=== PATIENT | male | born 1975 | race American Indian/Alaskan Native ===

== ENCOUNTER 2017-10-03 13:00 | Inpatient (IN) | payer OTHER ==
[2017-10-03 14:20] LABS: Basophils # (Auto) 0.1 K/mm3 (0.0-0.1); Basophils % (Auto) 0.6 % (0.0-1.8); Eosinophils # (Auto) 0.2 K/mm3 (0.0-0.4); Eosinophils % (Auto) 1.6 % (0.0-4.3); Hematocrit 47.6 % (35.5-45.6); Hemoglobin 15.6 gm/dl (11.8-15.2); Lymphocytes # (Auto) 2.4 K/mm3 (1.2-5.4); Lymphocytes % (Auto) 22.4 % (13.4-35.0); Mean Corpuscular HGB Conc 33 % (32-34); Mean Corpuscular Hemoglobin 30 pg (28-32); Mean Corpuscular Volume 92 fl (84-94); Monocytes # (Auto) 1.1 K/mm3 (0.0-0.8); Monocytes % (Auto) 10.4 % (0.0-7.3); Platelet Count 131 K/mm3 (140-440); Red Blood Count 5.19 M/mm3 (3.65-5.03); Red Cell Distribution Width 13.9 % (13.2-15.2)
[2017-10-03 14:29] LABS: INR 0.97 (0.87-1.13)
[2017-10-03 14:30] LABS: Partial Thromboplastin Time 29.9 Sec. (24.2-36.6)
[2017-10-03 15:31] LABS: BUN/Creatinine Ratio 13; Blood Urea Nitrogen 12 mg/dL (9-20); Calcium 9.5 mg/dL (8.4-10.2); Hemolysis Index 14
[2017-10-03 15:56] LABS: Bilirubin,Direct 0.3 mg/dL (0-0.2)
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
[2017-10-03] MEDS ORDERED: CARDIZEM IV ONE (17:57)
--- NOTE | 2017-10-03 18:01 | XRay Report ---
FINAL REPORT EXAM: XR CHEST ROUTINE 2V HISTORY: CHERRIE TECHNIQUE: Chest two views PA and lateral PRIORS: None. FINDINGS: There is mild cardiac enlargement. No focal pulmonary infiltrate identified. No pleural fluid collection seen. The pulmonary vasculature is unremarkable. IMPRESSION: Mild cardiomegaly No acute pulmonary findings
[2017-10-03] MEDS ORDERED: LOPRESSOR PO ONE (18:05)
[2017-10-03] MEDS: ASPIRIN PO SCH (18:52)
[2017-10-03] MEDS ORDERED: PROVENTIL IH PRN (20:15)
[2017-10-03] MEDS ORDERED: ZOFRAN IV PRN (20:15)
[2017-10-03] MEDS ORDERED: TYLENOL PO PRN (20:15)
[2017-10-03] MEDS ORDERED: MILK OF MAGNESIA PO PRN (20:15)
[2017-10-03] MEDS ORDERED: DULCOLAX PR PRN (20:15)
--- NOTE | 2017-10-03 21:40 | Cat Scan Report ---
FINAL REPORT PROCEDURE: CT ANGIO CHEST TECHNIQUE: Computerized tomographic angiography of the chest was performed during the IV injection of iodinated nonionic contrast including image processing. The image data was postprocessed using 2-dimensional multiplanar reformatted (MPR) and 3-dimensional (MIP and/or volume rendered) techniques. HISTORY: dypsnea. COMPARISON: No prior studies are available for comparison. FINDINGS: Pulmonary outflow tract, right and left main pulmonary arteries and their proximal branches: Clear, no filling defects seen to suggest pulmonary embolus. Pericardium: No evidence of pericardial effusion.. The heart appears to be mildly enlarged. Thoracic aorta: Atherosclerotic changes are seen. No aneurysm is identified. Coronary arteries: Are unremarkable. Mediastinum and hilar regions: Nonspecific subcentimeter lymph nodes are visualized. No pathologically enlarged lymph nodes or masses are identified. Lung Elder: There is minimal linear atelectasis in the lung bases. The lungs otherwise are clear. Upper abdomen: No acute or focal abnormality is seen. Other: No acute bony abnormalities are identified. IMPRESSION: No evidence of pulmonary embolus. Mild cardiomegaly. No acute abnormality is identified.
[2017-10-03] MEDS: COREG PO SCH (22:59)
[2017-10-03] MEDS: TAPAZOLE PO SCH (23:00)
[2017-10-04] MEDS: CARDIZEM PO SCH ×4 (00:20→17:30)
[2017-10-04] MEDS: TAPAZOLE PO SCH ×3 (05:03→21:46)
[2017-10-04] MEDS: LASIX IV SCH ×2 (05:04→17:40)
--- NOTE | 2017-10-04 05:13 | History and Physical Report ---
History of Present Illness Date of admission: 10/03/17 20:15 Chief complaint: I cant breathe, and i feel like im holding on to fluid History of present illness: 42 YO Male with Systolic CHF, Medication Noncompliance, Hyperthyroidism, Atrial Fib presents to ED for evaluation. Pt states that he has experienced shortness of breath and chest discomfort over the past 2 days with worsening symptoms over the past 1 day. Pt acknowledges orthopnea/PND, dyspnea on exertion, bilateral leg swelling as well as palpitations. Pt states that he has not taken his medication for the past 2 months. Pt denies fever, chills, CP, NVD, Syncope , Skin rash, recent ill contacts, productive cough. Pt seen and evaluated in ED and found to have Acuge CHF decompensation, as well as Atril Fib, and thyrotoxicosis. Pt treated IAW CHF protocol, and restarted on beta louis, and methmizole. Pt admitted to telemetry. Past History Past Medical History: atrial fib, heart failure, hyperthyroidism Past Surgical History: Other (Arm surgery) Social history: , lives with family Family history: hypertension Medications and Allergies Allergies Allergy/AdvReac Type Severity Reaction Status Date / Time Penicillins Allergy Hives Verified 10/03/17 13:27 Home Medications Medication Instructions Recorded Confirmed Last Taken Type Carvedilol [Coreg] 25 mg PO BID 10/03/17 10/03/17 Unknown History Furosemide [Lasix] 20 mg PO DAILY 10/03/17 10/03/17 Unknown History Active Meds: Active Medications Acetaminophen (Tylenol) 650 mg PO Q4H PRN PRN Reason: Pain MILD(1-3)/Fever >100.5/RAMIREZ Albuterol (Proventil) 2.5 mg IH Q4HRT PRN PRN Reason: Shortness Of Breath Aspirin (Aspirin) 325 mg PO QDAY [facility] Last Admin: 10/03/17 18:52 Dose: 325 mg Bisacodyl (Dulcolax) 10 mg RI QDAY PRN PRN Reason: Constipation unrelieved by MOM Carvedilol (Coreg) 25 mg PO BID [facility] Last Admin: 10/03/17 22:59 Dose: 25 mg Diltiazem HCl (Cardizem) 30 mg PO Q6HR [facility] Last Admin: 10/04/17 05:03 Dose: 30 mg Furosemide (Lasix) 20 mg IV BID@0600,1800 [facility] Last Admin: 10/04/17 05:04 Dose: 20 mg Magnesium Hydroxide (Milk Of Magnesia) 30 ml PO Q4H PRN PRN Reason: Constipation Methimazole (Tapazole) 5 mg PO Q8HR [facility] Last Admin: 10/04/17 05:03 Dose: 5 mg Ondansetron HCl (Zofran) 4 mg IV Q8H PRN PRN Reason: N/V unrelieved by Reglan Review of Systems Constitutional: no weight gain, no fever, no chills, no sweats Ears, nose, mouth and throat: no ear pain, no ear discharge, no tinnitis, no decreased hearing, no nose pain Cardiovascular: orthopnea, palpitations, shortness of breath, dyspnea on exertion, paroxysmal nocturnal dyspnea, leg edema, no chest pain Respiratory: no cough, no cough with sputum, no excessive sputum, no hemoptysis Gastrointestinal: no nausea, no vomiting, no diarrhea, no constipation Genitourinary Male: no hematuria, no flank pain, no discharge, no urinary frequency, no urinary hesitancy Rectal: no pain, no incontinence, no bleeding Musculoskeletal: no neck stiffness, no neck pain, no shooting arm pain, no low back pain Integumentary: no rash, no pruritis, no redness, no sores Neurological: no transient paralysis, no paralysis, no weakness, no parathesias , no numbness Psychiatric: no anxiety, no memory loss, no change in sleep habits, no sleep disturbances, no insomnia, no hypersomnia Endocrine: heat intolerance, no cold intolerance, no polyphagia, no excessive thirst, no polydipsia, no polyuria, no nocturia Hematologic/Lymphatic: no easy bruising, no easy bleeding, no lymphadenopathy, no lymphedema Allergic/Immunologic: no urticaria, no allergic rhinitis, no wheezing Exam - Constitutional Vitals: Temp Pulse Resp BP Pulse Ox 98.5 F 92 H 20 125/65 96 10/04/17 01:30 10/04/17 02:06 10/04/17 02:54 10/04/17 05:03 10/04/17 01:30 General appearance: Present: mild distress - EENT Eyes: Present: EOM intact (proptosis) ENT: hearing intact, clear oral mucosa - Neck Neck: Present: supple, normal ROM - Respiratory Respiratory effort: normal Respiratory: bilateral: diminished, rhonchi - Cardiovascular Heart Sounds: Present: S1 & S2. Absent: rub, click - Extremities Extremities: pulses symmetrical, No edema Extremity abnormal: edema Peripheral Pulses: within normal limits - Abdominal General gastrointestinal: Present: soft, non-tender, non-distended, normal bowel sounds Male genitourinary: Present: normal - Integumentary Integumentary: Present: clear, warm, dry - Musculoskeletal Musculoskeletal: gait normal, strength equal bilaterally - Psychiatric Psychiatric: appropriate mood/affect, intact judgment & insight - Neurologic Neurologic: CNII-XII intact, moves all extremities Results - Labs CBC & Chem 7: 10/03/17 13:51 10/03/17 13:51 Labs: Abnormal lab results 10/03/17 10/03/17 10/03/17 Range/Units 13:51 13:51 13:51 RBC 5.19 H (3.65-5.03) M/mm3 Hgb 15.6 H (11.8-15.2) gm/dl Hct 47.6 H (35.5-45.6) % Plt Count 131 L (140-440) K/mm3 Noble % (Auto) 10.4 H (0.0-7.3) % Noble # 1.1 H (0.0-0.8) K/mm3 D-Dimer (0-234) ng/mlDDU Total Bilirubin (0.1-1.2) mg/dL Direct Bilirubin (0-0.2) mg/dL NT-Pro-B Natriuret Pep 2413 H (0-450) pg/mL TSH 0.032 L (0.270-4.200) mlU/mL 10/03/17 10/03/17 Range/Units 13:51 19:25 RBC (3.65-5.03) M/mm3 Hgb (11.8-15.2) gm/dl Hct (35.5-45.6) % Plt Count (140-440) K/mm3 Noble % (Auto) (0.0-7.3) % Noble # (0.0-0.8) K/mm3 D-Dimer 331.12 H (0-234) ng/mlDDU Total Bilirubin 1.50 H (0.1-1.2) mg/dL Direct Bilirubin 0.3 H (0-0.2) mg/dL NT-Pro-B Natriuret Pep (0-450) pg/mL TSH (0.270-4.200) mlU/mL Assessment and Plan - Patient Problems (1) Thyrotoxicosis Current Visit: Yes Status: Acute Qualifiers: Thyrotoxic crisis or storm presence: with thyrotoxic crisis or storm Plan to address problem: Restart methmizole, supportive care, outpatient endocrine f/u (2) CHF (congestive heart failure) Current Visit: Yes Status: Acute Qualifiers: Congestive heart failure type: systolic Congestive heart failure chronicity : acute Qualified Code(s): I50.21 - Acute systolic (congestive) heart failure Plan to address problem: Fluid restriction, monitor uop q shift, daily weight, Beta louis, diuresis, suupplemental oxygen, cardiology consulted in ED. (3) Atrial fibrillation with RVR Current Visit: Yes Status: Acute Plan to address problem: Paroxysmal, Continue With b louis for rate control, and methmizole for thyrotoxicosis, CHADS 2 VAsc Score:1, (4) DVT prophylaxis Current Visit: Yes Status: Acute
[2017-10-04] MEDS: COREG PO SCH ×2 (12:00→21:47)
[2017-10-04] MEDS: ASPIRIN PO SCH (12:00)
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
[2017-10-04 18:08] LABS: Free T4 (Free Thyroxine) 1.55 ng/dL (0.76-1.46)
[2017-10-05] MEDS: CARDIZEM PO SCH ×3 (00:29→12:42)
[2017-10-05] MEDS: TAPAZOLE PO SCH ×3 (05:14→23:05)
[2017-10-05] MEDS: LASIX IV SCH ×2 (05:15→18:52)
[2017-10-05] MEDS: ASPIRIN PO SCH (10:24)
[2017-10-05] MEDS: COREG PO SCH ×4 (10:25→23:06)
--- NOTE | 2017-10-05 10:55 | Consultation ---
History of Present Illness Consult date: 10/05/17 Requesting physician: JAYLENE TOLLIVER Consult reason: atrial fibrillation, congestive heart failure History of present illness: The pt is a 42 YO male with a past medical history significant for chronic atrial fibrillation, heart failure, cardiomyopathy with last known EF 32%, hyperthyroidism, throid storm, ETOH use and marijuana use. He reports that he is regularly followed by [facility]. Pt presented with c/o generalized fatigue, dizziness, BLE edema, SOB, palpitations and chest pain for 3 days prior to arrival. He reports that due to financial issues, he has not been able to afford his prescription medications (including coreg, lasix and methimazole) and thus has not taken any medications for 2 months. He describes his chest pain as a nonexertional, nonradiating, left-sided sharp pain which is currently resolved. Following arrival, pt was found to have thyrotoxicosis and to also be in AFib with RVR. DDimer was elevated, chest CTA negative for PE. Echo done showed EF 35-40%, mildly dilated LV, mild LVH, abnormal LV diastolic function , mod AR. Pt reports that he was initially diagnosed with AFib, CMP and HF 1.5 years ago at [facility]. He denies any prior ischemic evaluation and reports that his serology technician at [facility] suspected that his CMP was secondary to his uncontrolled AFib and hyperthyroidism. Additionally, pt denies ever being on systemic anticoagulation. He states that he drinks alcohol and believes that this is adequate enough at "thinning the blood". Past History Past Medical History: atrial fib, heart failure, hyperthyroidism Past Surgical History: Other (Arm surgery) Social history: , lives with family Family history: hypertension Medications and Allergies Allergies Allergy/AdvReac Type Severity Reaction Status Date / Time Penicillins Allergy Hives Verified 10/03/17 13:27 Home Medications Medication Instructions Recorded Confirmed Last Taken Type Carvedilol [Coreg] 25 mg PO BID 10/03/17 10/03/17 Unknown History Furosemide [Lasix] 20 mg PO DAILY 10/03/17 10/03/17 Unknown History Active Meds: Active Medications Acetaminophen (Tylenol) 650 mg PO Q4H PRN PRN Reason: Pain MILD(1-3)/Fever >100.5/RAMIREZ Albuterol (Proventil) 2.5 mg IH Q4HRT PRN PRN Reason: Shortness Of Breath Aspirin (Aspirin) 325 mg PO QDAY [facility] Last Admin: 10/04/17 12:00 Dose: 325 mg Bisacodyl (Dulcolax) 10 mg VA QDAY PRN PRN Reason: Constipation unrelieved by MOM Carvedilol (Coreg) 25 mg PO BID [facility] Last Admin: 10/04/17 21:47 Dose: Not Given Diltiazem HCl (Cardizem) 30 mg PO Q6HR [facility] Last Admin: 10/05/17 05:15 Dose: 30 mg Furosemide (Lasix) 20 mg IV BID@0600,1800 [facility] Last Admin: 10/05/17 05:15 Dose: 20 mg Magnesium Hydroxide (Milk Of Magnesia) 30 ml PO Q4H PRN PRN Reason: Constipation Methimazole (Tapazole) 5 mg PO Q8HR [facility] Last Admin: 10/05/17 05:14 Dose: 5 mg Ondansetron HCl (Zofran) 4 mg IV Q8H PRN PRN Reason: N/V unrelieved by Reglan Review of Systems Constitutional: fatigue, no weight loss, no weight gain, no fever, no chills, no sweats Ears, nose, mouth and throat: no ear pain, no nose pain, no sinus pressure, no sinus pain Cardiovascular: chest pain, palpitations, rapid/irregular heart beat, edema (BLE ), lightheadedness, shortness of breath, dyspnea on exertion, leg edema, decreased exercise tolerance, no orthopnea, no syncope, no paroxysmal nocturnal dyspnea, no high blood pressure Respiratory: shortness of breath, dyspnea on exertion, no cough, no congestion, no wheezing, no pain on inspiration Gastrointestinal: no abdominal pain, no nausea, no vomiting, no diarrhea, no constipation, no change in bowel habits Genitourinary Male: no hematuria, no flank pain, no discharge, no urinary frequency, no urinary hesitancy Musculoskeletal: no neck stiffness, no neck pain Integumentary: no rash, no pruritis, no redness, no sores, no wounds Neurological: no head injury, no paralysis, no weakness, no parathesias, no numbness, no tingling, no seizures, no syncope Psychiatric: no anxiety Endocrine: no cold intolerance, no heat intolerance Hematologic/Lymphatic: no easy bruising, no easy bleeding Allergic/Immunologic: no urticaria, no wheezing Physical Examination Vital Signs Temp Pulse Resp BP Pulse Ox 98.5 F 82 18 145/88 98 10/03/17 13:27 10/03/17 13:27 10/03/17 13:27 10/03/17 13:27 10/03/17 13:27 General appearance: no acute distress HEENT: Positive: PERRL, Normocephaly, Mucus Membranes Moist Neck: Positive: neck supple, trachea midline Cardiac: Positive: irregularly irregular, S1/S2, Tachycardia Lungs: Positive: clear to auscultation Neuro: Positive: Grossly Intact Abdomen: Positive: Soft. Negative: Tender Skin: Positive: Clear. Negative: Rash, Wound Musculoskeletal: No Fluid Collection, No Pain, Normal Range of Motion Extremities: Absent: edema Results 10/03/17 13:51 10/03/17 13:51 - Imaging and Cardiology Echo: report reviewed EKG: report reviewed, image reviewed EKG interpretations - Telemetry EKG Rhythm: Atrial Fibrillation - EKG Supraventricular dysrhythmia: atrial fibrillation Assessment and Plan Assessment: Chronic atrial fibrillation with RVR Acute combined systolic and diastolic heart failure CMP - EF 35-40% Hyperthyroidism / thyrotoxicosis Elevated DDimer - chest CTA negative for PE Medication noncompliance ETOH use / marijuana use - cessation encourage Plan: Optimize HR - titrate BB. Avoid CCB in setting of CMP. Cont diuresis with IV lasix. Pt with current CHADS score of 1 and thus systemic AC in regards to AFib is not currently indicated. Plan for lexiscan MPI stress test in AM. NPO after MN. Assessment and plan reviewed with pt at bedside. The patient has been seen in conjunction with Dr. Alfaro who agrees with the assessment and plan of care.
--- NOTE | 2017-10-05 14:39 | Progress Note ---
<JAYLENE TOLLIVER - Last Filed: 10/05/17 14:33> Assessment and Plan Assessment and plan: 42 YO Male with Systolic CHF, Medication Noncompliance, Hyperthyroidism, Atrial Fib presents to ED for evaluation. Pt states that he has experienced shortness of breath and chest discomfort over the past 2 days with worsening symptoms over the past 1 day. Pt acknowledges orthopnea/PND, dyspnea on exertion, bilateral leg swelling as well as palpitations. Pt states that he has not taken his medication for the past 2 months. Cardiomyopathy CCB d/c Elevated DDimer chest CTA negative for PE Thyrotoxicosis Continue methimazole, free T4 elevated supportive care, outpatient endocrine f/u Acute combined systolic and diastolic heart failure (congestive heart failure) Fluid restriction, monitor uop q shift, daily weight, continue Beta louis, diuresis, cardiology following Atrial fibrillation with RVR chronic Continue With b louis for rate control methimazole for thyrotoxicosis CHADS 2 VAsc Score:1, DVT prophylaxis SCDs History Interval history: Patient seen and examined. He denies CP, SOB, NV. Labs and nursing notes reviewed. Hospitalist Physical - Constitutional Vitals: Temp Pulse Resp BP Pulse Ox 97.8 F 58 L 20 132/90 96 10/05/17 12:10 10/05/17 12:10 10/05/17 12:10 10/05/17 12:10 10/05/17 12:10 General appearance: Present: no acute distress, well-nourished - EENT Eyes: Present: PERRL, EOM intact, exopthalmos ENT: hearing intact, clear oral mucosa - Neck Neck: Present: supple, normal ROM - Respiratory Respiratory effort: normal Respiratory: bilateral: CTA - Cardiovascular Rhythm: irregularly irregular Heart Sounds: Present: S1 & S2 - Extremities Extremities: no ischemia, No edema, normal color - Abdominal General gastrointestinal: soft, non-tender, non-distended - Integumentary Integumentary: Present: clear, warm, dry - Psychiatric Psychiatric: appropriate mood/affect, cooperative - Neurologic Neurologic: CNII-XII intact, moves all extremities - Allied Health Allied health notes reviewed: nursing (no sign) Results - Labs CBC & Chem 7: 10/03/17 13:51 10/03/17 13:51 Labs: Laboratory Last Values WBC 10.7 K/mm3 (4.5-11.0) 10/03/17 13:51 RBC 5.19 M/mm3 (3.65-5.03) H 10/03/17 13:51 Hgb 15.6 gm/dl (11.8-15.2) H 10/03/17 13:51 Hct 47.6 % (35.5-45.6) H 10/03/17 13:51 MCV 92 fl (84-94) 10/03/17 13:51 MCH 30 pg (28-32) 10/03/17 13:51 MCHC 33 % (32-34) 10/03/17 13:51 RDW 13.9 % (13.2-15.2) 10/03/17 13:51 Plt Count 131 K/mm3 (140-440) L 10/03/17 13:51 Lymph % (Auto) 22.4 % (13.4-35.0) 10/03/17 13:51 [place] % (Auto) 10.4 % (0.0-7.3) H 10/03/17 13:51 Eos % (Auto) 1.6 % (0.0-4.3) 10/03/17 13:51 Baso % (Auto) 0.6 % (0.0-1.8) 10/03/17 13:51 Lymph # 2.4 K/mm3 (1.2-5.4) 10/03/17 13:51 [place] # 1.1 K/mm3 (0.0-0.8) H 10/03/17 13:51 Eos # 0.2 K/mm3 (0.0-0.4) 10/03/17 13:51 Baso # 0.1 K/mm3 (0.0-0.1) 10/03/17 13:51 Seg Neutrophils % 65.0 % (40.0-70.0) 10/03/17 13:51 Seg Neutrophils # 7.0 K/mm3 (1.8-7.7) 10/03/17 13:51 PT 13.4 Sec. (12.2-14.9) 10/03/17 13:51 INR 0.97 (0.87-1.13) 10/03/17 13:51 APTT 29.9 Sec. (24.2-36.6) 10/03/17 13:51 D-Dimer 331.12 ng/mlDDU (0-234) H 10/03/17 19:25 Sodium 141 mmol/L (137-145) 10/03/17 13:51 Potassium 3.9 mmol/L (3.6-5.0) 10/03/17 13:51 Chloride 98.2 mmol/L (98-107) 10/03/17 13:51 Carbon Dioxide 28 mmol/L (22-30) 10/03/17 13:51 Anion Gap 19 mmol/L 10/03/17 13:51 BUN 12 mg/dL (9-20) 10/03/17 13:51 Creatinine 0.9 mg/dL (0.8-1.5) 10/03/17 13:51 Estimated GFR > 60 ml/min 10/03/17 13:51 BUN/Creatinine Ratio 13 % 10/03/17 13:51 Glucose 87 mg/dL (75-100) 10/03/17 13:51 Calcium 9.5 mg/dL (8.4-10.2) 10/03/17 13:51 Magnesium 2.00 mg/dL (1.7-2.3) 10/03/17 13:51 Total Bilirubin 1.50 mg/dL (0.1-1.2) H 10/03/17 13:51 Direct Bilirubin 0.3 mg/dL (0-0.2) H 10/03/17 13:51 Indirect Bilirubin 1.2 mg/dL 10/03/17 13:51 AST 21 units/L (5-40) 10/03/17 13:51 ALT 15 units/L (7-56) 10/03/17 13:51 Alkaline Phosphatase 65 units/L (35-129) 10/03/17 13:51 Troponin T < 0.010 ng/mL (0.00-0.029) 10/03/17 19:15 NT-Pro-B Natriuret Pep 2413 pg/mL (0-450) H 10/03/17 13:51 Total Protein 8.1 g/dL (6.3-8.2) 10/03/17 13:51 Albumin 4.0 g/dL (3.9-5) 10/03/17 13:51 Albumin/Globulin Ratio 1.0 % 10/03/17 13:51 TSH 0.038 mlU/mL (0.270-4.200) L 10/04/17 17:03 Free T4 1.55 ng/dL (0.76-1.46) H 10/04/17 17:03 Thyroxine (T4) 10.4 ug/dL (4.0-12.0) 10/03/17 13:51 <FERMIN GARAY - Last Filed: 10/05/17 16:34> Hospitalist Physical - Constitutional Vitals: Temp Pulse Resp BP Pulse Ox 97.8 F 58 L 20 132/90 96 10/05/17 12:10 10/05/17 12:10 10/05/17 12:10 10/05/17 12:10 10/05/17 12:10 Results - Labs CBC & Chem 7: 10/03/17 13:51 10/03/17 13:51 Labs: Laboratory Last Values WBC 10.7 K/mm3 (4.5-11.0) 10/03/17 13:51 RBC 5.19 M/mm3 (3.65-5.03) H 10/03/17 13:51 Hgb 15.6 gm/dl (11.8-15.2) H 10/03/17 13:51 Hct 47.6 % (35.5-45.6) H 10/03/17 13:51 MCV 92 fl (84-94) 10/03/17 13:51 MCH 30 pg (28-32) 10/03/17 13:51 MCHC 33 % (32-34) 10/03/17 13:51 RDW 13.9 % (13.2-15.2) 10/03/17 13:51 Plt Count 131 K/mm3 (140-440) L 10/03/17 13:51 Lymph % (Auto) 22.4 % (13.4-35.0) 10/03/17 13:51 [place] % (Auto) 10.4 % (0.0-7.3) H 10/03/17 13:51 Eos % (Auto) 1.6 % (0.0-4.3) 10/03/17 13:51 Baso % (Auto) 0.6 % (0.0-1.8) 10/03/17 13:51 Lymph # 2.4 K/mm3 (1.2-5.4) 10/03/17 13:51 [place] # 1.1 K/mm3 (0.0-0.8) H 10/03/17 13:51 Eos # 0.2 K/mm3 (0.0-0.4) 10/03/17 13:51 Baso # 0.1 K/mm3 (0.0-0.1) 10/03/17 13:51 Seg Neutrophils % 65.0 % (40.0-70.0) 10/03/17 13:51 Seg Neutrophils # 7.0 K/mm3 (1.8-7.7) 10/03/17 13:51 PT 13.4 Sec. (12.2-14.9) 10/03/17 13:51 INR 0.97 (0.87-1.13) 10/03/17 13:51 APTT 29.9 Sec. (24.2-36.6) 10/03/17 13:51 D-Dimer 331.12 ng/mlDDU (0-234) H 10/03/17 19:25 Sodium 141 mmol/L (137-145) 10/03/17 13:51 Potassium 3.9 mmol/L (3.6-5.0) 10/03/17 13:51 Chloride 98.2 mmol/L (98-107) 10/03/17 13:51 Carbon Dioxide 28 mmol/L (22-30) 10/03/17 13:51 Anion Gap 19 mmol/L 10/03/17 13:51 BUN 12 mg/dL (9-20) 10/03/17 13:51 Creatinine 0.9 mg/dL (0.8-1.5) 10/03/17 13:51 Estimated GFR > 60 ml/min 10/03/17 13:51 BUN/Creatinine Ratio 13 % 10/03/17 13:51 Glucose 87 mg/dL (75-100) 10/03/17 13:51 Calcium 9.5 mg/dL (8.4-10.2) 10/03/17 13:51 Magnesium 2.00 mg/dL (1.7-2.3) 10/03/17 13:51 Total Bilirubin 1.50 mg/dL (0.1-1.2) H 10/03/17 13:51 Direct Bilirubin 0.3 mg/dL (0-0.2) H 10/03/17 13:51 Indirect Bilirubin 1.2 mg/dL 10/03/17 13:51 AST 21 units/L (5-40) 10/03/17 13:51 ALT 15 units/L (7-56) 10/03/17 13:51 Alkaline Phosphatase 65 units/L (35-129) 10/03/17 13:51 Troponin T < 0.010 ng/mL (0.00-0.029) 10/03/17 19:15 NT-Pro-B Natriuret Pep 2413 pg/mL (0-450) H 10/03/17 13:51 Total Protein 8.1 g/dL (6.3-8.2) 10/03/17 13:51 Albumin 4.0 g/dL (3.9-5) 10/03/17 13:51 Albumin/Globulin Ratio 1.0 % 10/03/17 13:51 TSH 0.038 mlU/mL (0.270-4.200) L 10/04/17 17:03 Free T4 1.55 ng/dL (0.76-1.46) H 10/04/17 17:03 Thyroxine (T4) 10.4 ug/dL (4.0-12.0) 10/03/17 13:51
[2017-10-06 06:07] LABS: BUN/Creatinine Ratio 11; Blood Urea Nitrogen 11 mg/dL (9-20); Hemolysis Index 8
[2017-10-06] MEDS ORDERED: LEXISCAN IV ONE ×2 (09:15→09:30)
--- NOTE | 2017-10-06 10:16 | Progress Note ---
Assessment and Plan Assessment: Chronic atrial fibrillation with RVR Acute combined systolic and diastolic heart failure - nearing/at euvolemia CMP - EF 35-40% Hyperthyroidism / thyrotoxicosis Elevated DDimer - chest CTA negative for PE Medication noncompliance ETOH use / marijuana use - cessation encourage Plan: Proceed with lexiscan MPI stress test this AM. Await findings. Convert IV lasix to PO lasix 40mg daily. Convert coreg to lopressor for more adequate HR control. Titrate as tolerated. Pt with current CHADS score of 1 and thus systemic AC in regards to AFib is not currently indicated. Assessment and plan reviewed with pt at bedside. The patient has been seen in conjunction with Dr. GARRY Negron who agrees with the assessment and plan of care. Subjective Date of service: 10/06/17 Principal diagnosis: AFib; HF Interval history: pt for stress test today. no current cardiac complaints. Tele reviewed - pt remains in AFib with bouts of RVR (HR 130s) overnight. Objective Last Vital Signs Temp 97.8 F 10/06/17 04:33 Pulse 55 L 10/06/17 04:33 Resp 18 10/06/17 04:33 BP 108/65 10/06/17 04:33 Pulse Ox 96 10/06/17 04:33 - Physical Examination General: No Apparent Distress HEENT: Positive: PERRL, Normocephaly, Mucus Membranes Moist Neck: Positive: neck supple, trachea midline Cardiac: Positive: irregularly irregular, S1/S2 Lungs: Positive: clear to auscultation Neuro: Positive: Grossly Intact Abdomen: Positive: Soft. Negative: Tender Skin: Positive: Clear. Negative: Rash, Wound Musculoskeletal: No Fluid Collection, No Pain, Normal Range of Motion Extremities: Absent: edema - Labs and Meds Comprehensive Metabolic Panel 10/06/17 Range/Units 05:25 Sodium 142 (137-145) mmol/L Potassium 4.1 (3.6-5.0) mmol/L Chloride 100.5 (98-107) mmol/L Carbon Dioxide 29 (22-30) mmol/L BUN 11 (9-20) mg/dL Creatinine 1.0 (0.8-1.5) mg/dL Glucose 96 (75-100) mg/dL Calcium 9.0 (8.4-10.2) mg/dL - Imaging and Cardiology EKG: report reviewed, image reviewed Echo: report reviewed - Telemetry EKG Rhythm: Atrial Fibrillation
[2017-10-06] MEDS ORDERED: LOPRESSOR PO SCH (11:00)
[2017-10-06] MEDS: ASPIRIN PO SCH (12:00)
--- NOTE | 2017-10-06 12:22 | Event Note ---
Date: 10/06/17 Lexiscan MPI stress test this AM showed inferoapical fixed perfusion defect, dilated LV, no evidence of significant ischemia. Emerald GARRISON NP / DR. GARRY BRANCH
[2017-10-06 12:24] VITALS: BP 118/96
--- NOTE | 2017-10-06 15:21 | Progress Note ---
<JAYLENE TOLLIVER - Last Filed: 10/06/17 15:22> Assessment and Plan Assessment and plan: 42 YO Male with Systolic CHF, Medication Noncompliance, Hyperthyroidism, Atrial Fib presents to ED for evaluation. Pt states that he has experienced shortness of breath and chest discomfort over the past 2 days with worsening symptoms over the past 1 day. Pt acknowledges orthopnea/PND, dyspnea on exertion, bilateral leg swelling as well as palpitations. Pt states that he has not taken his medication for the past 2 months. Cardiomyopathy CCB d/c Elevated DDimer chest CTA negative for PE Thyrotoxicosis Continue methimazole, free T4 elevated supportive care, outpatient endocrine f/u Acute combined systolic and diastolic heart failure (congestive heart failure) Fluid restriction, monitor uop q shift, daily weight, continue Beta louis, diuresis, cardiology following Atrial fibrillation with RVR chronic Continue With b louis for rate control, coreg to lopressor for more adequate HR control methimazole for thyrotoxicosis CHADS 2 Score:1, Lexiscan MPI stress test this AM showed inferoapical fixed perfusion defect, dilated LV, no evidence of significant ischemia. DVT prophylaxis SCDs History Interval history: Patient seen and examined. He denies CP, SOB, NV. Labs and nursing notes reviewed. Hospitalist Physical - Constitutional Vitals: Temp Pulse Resp BP Pulse Ox 98.7 F 50 L 20 118/96 96 10/06/17 12:21 10/06/17 12:21 10/06/17 12:21 10/06/17 12:21 10/06/17 12:21 General appearance: Present: no acute distress, well-nourished - EENT Eyes: Present: PERRL, EOM intact, exopthalmos ENT: hearing intact, clear oral mucosa, dentition normal - Neck Neck: Present: supple, normal ROM - Respiratory Respiratory effort: normal Respiratory: bilateral: CTA - Cardiovascular Rhythm: regular Heart Sounds: Present: S1 & S2 - Extremities Extremities: no ischemia, No edema - Abdominal General gastrointestinal: soft, non-tender, non-distended - Integumentary Integumentary: Present: clear, warm, dry - Psychiatric Psychiatric: appropriate mood/affect, cooperative - Neurologic Neurologic: CNII-XII intact, moves all extremities - Allied Health Allied health notes reviewed: nursing Results - Labs CBC & Chem 7: 10/03/17 13:51 10/06/17 05:25 Labs: Laboratory Last Values WBC 10.7 K/mm3 (4.5-11.0) 10/03/17 13:51 RBC 5.19 M/mm3 (3.65-5.03) H 10/03/17 13:51 Hgb 15.6 gm/dl (11.8-15.2) H 10/03/17 13:51 Hct 47.6 % (35.5-45.6) H 10/03/17 13:51 MCV 92 fl (84-94) 10/03/17 13:51 MCH 30 pg (28-32) 10/03/17 13:51 MCHC 33 % (32-34) 10/03/17 13:51 RDW 13.9 % (13.2-15.2) 10/03/17 13:51 Plt Count 131 K/mm3 (140-440) L 10/03/17 13:51 Lymph % (Auto) 22.4 % (13.4-35.0) 10/03/17 13:51 [place] % (Auto) 10.4 % (0.0-7.3) H 10/03/17 13:51 Eos % (Auto) 1.6 % (0.0-4.3) 10/03/17 13:51 Baso % (Auto) 0.6 % (0.0-1.8) 10/03/17 13:51 Lymph # 2.4 K/mm3 (1.2-5.4) 10/03/17 13:51 [place] # 1.1 K/mm3 (0.0-0.8) H 10/03/17 13:51 Eos # 0.2 K/mm3 (0.0-0.4) 10/03/17 13:51 Baso # 0.1 K/mm3 (0.0-0.1) 10/03/17 13:51 Seg Neutrophils % 65.0 % (40.0-70.0) 10/03/17 13:51 Seg Neutrophils # 7.0 K/mm3 (1.8-7.7) 10/03/17 13:51 PT 13.4 Sec. (12.2-14.9) 10/03/17 13:51 INR 0.97 (0.87-1.13) 10/03/17 13:51 APTT 29.9 Sec. (24.2-36.6) 10/03/17 13:51 D-Dimer 331.12 ng/mlDDU (0-234) H 10/03/17 19:25 Sodium 142 mmol/L (137-145) 10/06/17 05:25 Potassium 4.1 mmol/L (3.6-5.0) 10/06/17 05:25 Chloride 100.5 mmol/L (98-107) 10/06/17 05:25 Carbon Dioxide 29 mmol/L (22-30) 10/06/17 05:25 Anion Gap 17 mmol/L 10/06/17 05:25 BUN 11 mg/dL (9-20) 10/06/17 05:25 Creatinine 1.0 mg/dL (0.8-1.5) 10/06/17 05:25 Estimated GFR > 60 ml/min 10/06/17 05:25 BUN/Creatinine Ratio 11 % 10/06/17 05:25 Glucose 96 mg/dL (75-100) 10/06/17 05:25 Calcium 9.0 mg/dL (8.4-10.2) 10/06/17 05:25 Magnesium 2.00 mg/dL (1.7-2.3) 10/03/17 13:51 Total Bilirubin 1.50 mg/dL (0.1-1.2) H 10/03/17 13:51 Direct Bilirubin 0.3 mg/dL (0-0.2) H 10/03/17 13:51 Indirect Bilirubin 1.2 mg/dL 10/03/17 13:51 AST 21 units/L (5-40) 10/03/17 13:51 ALT 15 units/L (7-56) 10/03/17 13:51 Alkaline Phosphatase 65 units/L (35-129) 10/03/17 13:51 Troponin T < 0.010 ng/mL (0.00-0.029) 10/03/17 19:15 NT-Pro-B Natriuret Pep 2413 pg/mL (0-450) H 10/03/17 13:51 Total Protein 8.1 g/dL (6.3-8.2) 10/03/17 13:51 Albumin 4.0 g/dL (3.9-5) 10/03/17 13:51 Albumin/Globulin Ratio 1.0 % 10/03/17 13:51 TSH 0.038 mlU/mL (0.270-4.200) L 10/04/17 17:03 Free T4 1.55 ng/dL (0.76-1.46) H 10/04/17 17:03 Thyroxine (T4) 10.4 ug/dL (4.0-12.0) 10/03/17 13:51 <FERMIN GARAY - Last Filed: 10/06/17 17:34> History Interval history: I saw and evaluated the patient. I agree with the findings and the plan of care as documented in the Nurse Practitioner's~note, with the following corrections and additions. Patient seen and evaluated Had negative stress test A. fib with rapid ventricular rate Cardiology recommended metoprolol Closely monitor overnight and discharged a.m. if stable Hospitalist Physical - Constitutional Vitals: Temp Pulse Resp BP Pulse Ox 98.7 F 50 L 20 118/96 96 10/06/17 12:21 10/06/17 12:21 10/06/17 12:21 10/06/17 12:21 10/06/17 12:21 Results - Labs CBC & Chem 7: 10/03/17 13:51 10/06/17 05:25 Labs: Laboratory Last Values WBC 10.7 K/mm3 (4.5-11.0) 10/03/17 13:51 RBC 5.19 M/mm3 (3.65-5.03) H 10/03/17 13:51 Hgb 15.6 gm/dl (11.8-15.2) H 10/03/17 13:51 Hct 47.6 % (35.5-45.6) H 10/03/17 13:51 MCV 92 fl (84-94) 10/03/17 13:51 MCH 30 pg (28-32) 10/03/17 13:51 MCHC 33 % (32-34) 10/03/17 13:51 RDW 13.9 % (13.2-15.2) 10/03/17 13:51 Plt Count 131 K/mm3 (140-440) L 10/03/17 13:51 Lymph % (Auto) 22.4 % (13.4-35.0) 10/03/17 13:51 [place] % (Auto) 10.4 % (0.0-7.3) H 10/03/17 13:51 Eos % (Auto) 1.6 % (0.0-4.3) 10/03/17 13:51 Baso % (Auto) 0.6 % (0.0-1.8) 10/03/17 13:51 Lymph # 2.4 K/mm3 (1.2-5.4) 10/03/17 13:51 [place] # 1.1 K/mm3 (0.0-0.8) H 10/03/17 13:51 Eos # 0.2 K/mm3 (0.0-0.4) 10/03/17 13:51 Baso # 0.1 K/mm3 (0.0-0.1) 10/03/17 13:51 Seg Neutrophils % 65.0 % (40.0-70.0) 10/03/17 13:51 Seg Neutrophils # 7.0 K/mm3 (1.8-7.7) 10/03/17 13:51 PT 13.4 Sec. (12.2-14.9) 10/03/17 13:51 INR 0.97 (0.87-1.13) 10/03/17 13:51 APTT 29.9 Sec. (24.2-36.6) 10/03/17 13:51 D-Dimer 331.12 ng/mlDDU (0-234) H 10/03/17 19:25 Sodium 142 mmol/L (137-145) 10/06/17 05:25 Potassium 4.1 mmol/L (3.6-5.0) 10/06/17 05:25 Chloride 100.5 mmol/L (98-107) 10/06/17 05:25 Carbon Dioxide 29 mmol/L (22-30) 10/06/17 05:25 Anion Gap 17 mmol/L 10/06/17 05:25 BUN 11 mg/dL (9-20) 10/06/17 05:25 Creatinine 1.0 mg/dL (0.8-1.5) 10/06/17 05:25 Estimated GFR > 60 ml/min 10/06/17 05:25 BUN/Creatinine Ratio 11 % 10/06/17 05:25 Glucose 96 mg/dL (75-100) 10/06/17 05:25 Calcium 9.0 mg/dL (8.4-10.2) 10/06/17 05:25 Magnesium 2.00 mg/dL (1.7-2.3) 10/03/17 13:51 Total Bilirubin 1.50 mg/dL (0.1-1.2) H 10/03/17 13:51 Direct Bilirubin 0.3 mg/dL (0-0.2) H 10/03/17 13:51 Indirect Bilirubin 1.2 mg/dL 10/03/17 13:51 AST 21 units/L (5-40) 10/03/17 13:51 ALT 15 units/L (7-56) 10/03/17 13:51 Alkaline Phosphatase 65 units/L (35-129) 10/03/17 13:51 Troponin T < 0.010 ng/mL (0.00-0.029) 10/03/17 19:15 NT-Pro-B Natriuret Pep 2413 pg/mL (0-450) H 10/03/17 13:51 Total Protein 8.1 g/dL (6.3-8.2) 10/03/17 13:51 Albumin 4.0 g/dL (3.9-5) 10/03/17 13:51 Albumin/Globulin Ratio 1.0 % 10/03/17 13:51 TSH 0.038 mlU/mL (0.270-4.200) L 10/04/17 17:03 Free T4 1.55 ng/dL (0.76-1.46) H 10/04/17 17:03 Thyroxine (T4) 10.4 ug/dL (4.0-12.0) 10/03/17 13:51
--- NOTE | 2017-10-06 17:24 | Discharge Summary ---
Providers - Providers Date of Admission: 10/03/17 20:15 Date of discharge: 10/06/17 Attending physician: FERMIN GARAY 10/04/17 16:17 Consult to Physician [CONS] Routine Consulting Provider: KAUSHIK HOPE Reason For Exam: a fib/ acute on chronic CHF Place consult to:: In-house Notified:: yes Primary care physician: [facility] Hospitalization Reason for admission: worsening shortness of breath/ chest pain Condition: Stable Pertinent studies: Chest x-ray; cardiomegaly CT angiogram of the chest; negative for PE Echocardiogram; LV ejection fraction 35-40%, mild LVH Stress test; Lexiscan stress test inferioapical perfusion defect, dilated left ventricle, no evidence of ischemia Hospital course: 42 YO -[place] Male patient with history of Hyperthyroidism, chronic Atrial Fib, systolic congestive heart failure ,medical noncompliance admitted through emergency room with worsening shortness of breath and chest discomfort , Patient was admitted to the hospital symptomatically managed evaluated by cardiology , medications were optimized , underwent stress test , patient was having paroxysmal atrial fibrillation with rapid ventricular rate , cardiology optimizing medications , change Coreg to metoprolol And advised overnight monitoring of heart rate and plan to discharge tomorrow if medically stable . However patient did not want to stay in the hospital , wanted to leave AGAINST MEDICAL ADVICE , counseling done, risks and consequences of leaving AMA discussed with the patient , patient verbalized understanding , was angry and verbal and left AMA . Patient advised to seek medical help should he have chest pain palpitation or shortness of breath. Disposition: [id number] LEFT AGAINST MED ADVICE Time spent for discharge: 31 min Core Measure Documentation - Palliative Care Palliative Care/ Comfort Measures: Not Applicable - Core Measures Any of the following diagnoses?: heart failure - Heart Failure Discharge Requirements KATALINA/ARB for LVSD if EF <40%: No Reason for no KATALINA/ARB: Patient refusal (left AMA) Beta louis at discharge: No Reason for no beta louis on DC: Patient refusal (left AMA) Exam - Constitutional Vitals: Temp Pulse Resp BP Pulse Ox 98.7 F 50 L 20 118/96 96 10/06/17 12:21 10/06/17 12:21 10/06/17 12:21 10/06/17 12:21 10/06/17 12:21 General appearance: Present: no acute distress, well-nourished - EENT Eyes: Present: PERRL, EOM intact - Neck Neck: Present: supple, normal ROM - Respiratory Respiratory effort: normal Respiratory: negative: rales, rhonchi, wheezing - Cardiovascular Rhythm: irregularly irregular (tachycardia) Heart Sounds: Present: S1 & S2 - Extremities Extremities: no ischemia, No edema Peripheral Pulses: within normal limits - Abdominal General gastrointestinal: Present: soft, non-tender, non-distended, normal bowel sounds - Integumentary Integumentary: Present: clear, warm - Musculoskeletal Musculoskeletal: strength equal bilaterally - Psychiatric Psychiatric: appropriate mood/affect, cooperative - Neurologic Neurologic: CNII-XII intact, moves all extremities Plan Activity: no restrictions Diet: low salt Additional Instructions: Left AGAINST MEDICAL ADVICE Follow up with: PRIMARY CARE, [Primary Care Provider] - 3-5 Days Forms: AMA Form
--- NOTE | 2017-10-06 21:39 | Treadmill Report ---
The patient is brought to the Cardiology lab and a nuclear stress test is performed. The patient tolerated the Lexiscan administration well. Post stress images reveal inferoapical defect, which remains unchanged during the rest. Dilatation of the left ventricle is also noted. No gaiting was performed due to atrial fibrillation. IMPRESSION: Abnormal nuclear stress test with inferoapical fixed defect and dilated left ventricle, consistent with previous inferoapical myocardial infarction. Suggest clinical correlation. JOB# [id number] KBM/NTS
[2017-10-07] MEDS ORDERED: LASIX PO SCH (10:00)
== END 2017-10-06 17:00 | disposition left against medical advice (07) | DRG 308 ==
LOC: ED 13:00 → 4A 20:15
PROVIDERS: ADMIT Internal Medicine; ATTEND Internal Medicine
DX: I48.0 Paroxysmal atrial fibrillation (principal); I50.43 Acute on chronic combined systolic (congestive) and diastolic (congestive) heart failure; I42.9 Cardiomyopathy, unspecified; E05.90 Thyrotoxicosis, unspecified without thyrotoxic crisis or storm; F12.90 Cannabis use, unspecified, uncomplicated; G89.29 Other chronic pain; M54.9 Dorsalgia, unspecified; I48.2 Chronic atrial fibrillation; Z53.21 Procedure and treatment not carried out due to patient leaving prior to being seen by health care provider; Z88.0 Allergy status to penicillin; Z72.89 Other problems related to lifestyle; Z91.14 Patient's other noncompliance with medication regimen; Z82.49 Family history of ischemic heart disease and other diseases of the circulatory system; Z79.01 Long term (current) use of anticoagulants
CPT/HCPCS: 36415; 71046; 71275; 78452; 80048; 80074; 83735; 83880; 84436; 84439; 84443; 84480; 84484; 85025; 85379; 85610; 85730; 93005; 93010; 93017; 93306; 96374; A9502; J1940; J2785; Q9967

== ENCOUNTER 2017-11-15 16:51 | Emergency (ER) | payer SELFPAY ==
[2017-11-15] MEDS ORDERED: TORADOL IM ONE (17:21)
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
[2017-11-15 17:30] VITALS: BP 152/92
== END 2017-11-15 17:34 | disposition home or self-care (01) ==
LOC: ED 16:51
DX: K02.9 Dental caries, unspecified (principal); K05.10 Chronic gingivitis, plaque induced; I50.9 Heart failure, unspecified; Z88.0 Allergy status to penicillin
CPT/HCPCS: 96372; 99282; J1885

== ENCOUNTER 2021-03-13 15:10 | Emergency (ER) | payer SELFPAY | END 2021-03-13 16:07 | disposition left against medical advice (07) | LOC: ED 15:10 ==